=== PATIENT | male | born 1990 | race Caucasian/White ===

== ENCOUNTER 2017-07-25 13:00 | Emergency (ER) | payer OTHER ==
[2017-07-25 13:26] VITALS: BP 109/60
[2017-07-25] MEDS ORDERED: Lidocaine 2% W/EPI 1:100,000* 20 ML MDV INJ ONE (14:44)
[2017-07-25] MEDS ORDERED: Ibuprofen TAB* 200 MG PO ONE (15:07)
--- NOTE | 2017-07-25 15:12 | ED ---
Jelani Elizalde Nilda, scribed for Monica Story MD on 07/25/17 at 1452 . Adult Trauma - HPI Summary HPI Summary: This patient is a 26 year old M [place] [facility] [place] into a metal pole at 12:30 today (2 hours ago) while at work. 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 He sustained a laceration over his left eye. The patient rates the burning pain 4/10 in severity. Symptoms alleviated by compression. Patient denies LOC, bleeding from orifices (eyes, ears, nose, and mouth), dental trauma, abnormal neck pain, and abnormal back pain. He reports that his last tetanus shot was 4-5 years ago. Pt is not immunocompromised. No other injuries Patient's medication reviewed this visit. He states he is not taking nor is required to take any medications. - History of Current Complaint Chief Complaint: UCLaceration Stated Complaint: HIT HEAD ON POLE Time Seen by Provider: 07/25/17 14:39 Hx Obtained From: Patient Mechanism of Injury: Unknown - walked into metal pole Ambulatory at the Scene: Yes Loss of Consciousness: no loss of consciousness Onset/Duration: Started Hours Ago, Traumatic, Still Present Current Severity: Moderate Pain Intensity: 4 Pain Scale Used: 0-10 Numeric Location: Head Character: Burning Alleviating Factor(s): Compression Associated Signs & Symptoms: Positive: Other: - denies LOC, bleeding from orifices (eyes, ears, nose, and mouth), dental pain, abnormal neck pain, and abnormal back pain. - Allergy/Home Medications Allergies/Adverse Reactions: Allergies Allergy/AdvReac Type Severity Reaction Status Date / Time No Known Allergies Allergy Verified 07/25/17 13:26 Home Medications: Home Medications NK [No Home Medications Reported] 07/25/17 [History Confirmed 07/25/17] PMH/Surg Hx/FS Hx/Imm Hx Previously Healthy: Yes Endocrine/Hematology History: Denies: Hx Anticoagulant Therapy, Hx Diabetes, Hx Thyroid Disease Cardiovascular History: Denies: Hx Hypertension Respiratory History: Denies: Hx Asthma, Hx Chronic Obstructive Pulmonary Disease (COPD) GI History: Denies: Hx Ulcer - Surgical History Surgery Procedure, Year, and Place: ear surgery Infectious Disease History: No Infectious Disease History: Denies: Hx Clostridium Difficile, Hx Hepatitis, Hx Human Immunodeficiency Virus (HIV), Hx of Known/Suspected MRSA, Hx Shingles, Hx Tuberculosis, Hx Known/ Suspected VRE, Hx Known/Suspected VRSA, History Other Infectious Disease, Traveled Outside the [place] in Last 30 Days - Family History Known Family History: Negative: Hypertension, Diabetes - Social History Occupation: Employed Full-time - mailman Alcohol Use: Daily Substance Use Type: Reports: None Hx Tobacco Use: Yes Smoking Status (MU): Current Every Day Smoker Review of Systems Constitutional: Negative Eyes: Negative Positive: Other - negative bleeding from eyes Positive: Other - negative bleeding from nose, ears, and mouth. Negative: Dental Pain - negative dental trauma Positive: Other - negative abnormal neck pain and back pain Positive: Other - laceration over left eye Neurological: Other - negative LOC All Other Systems Reviewed And Are Negative: Yes Physical Exam Triage Information Reviewed: Yes Vital Signs On Initial Exam: Initial Vitals Temp Pulse Resp BP Pulse Ox 99.1 F 72 20 109/60 100 07/25/17 13:18 07/25/17 13:18 07/25/17 13:18 07/25/17 13:18 07/25/17 13:18 Vital Signs Reviewed: Yes Appearance: Positive: Well-Appearing, No Pain Distress, Well-Nourished Skin: Positive: Other - 1.5cm left lateral eyebrow Head/Face: Positive: Other - see skin Eyes: Positive: Normal ENT: Positive: Hearing grossly normal, Pharynx normal, Nasal congestion, TMs normal, Other - no pain or crepitus with palpation orbital ring b/l Neck: Positive: Supple, Nontender Respiratory/Lung Sounds: Positive: Clear to Auscultation, Breath Sounds Present Cardiovascular: Positive: Normal, RRR Musculoskeletal: Positive: Normal Neurological: Positive: Normal, Sensory/Motor Intact, Alert, Oriented to Person Place, Time Psychiatric: Positive: Normal AVPU Assessment: Alert - Maura Coma Scale Best Eye Response: 4 - Spontaneous Best Motor Response: 6 - Obeys Commands Best Verbal Response: 5 - Oriented Procedures - Procedure Summary Procedure Summary: time out conducted pt tolerated well reviewed wound care s/s infection with pt - Laceration/Wound Repair 1 Location: face - left lateral margin eye brow Description: Linear Anesthesia: 1.0%, Lido, Epi Length, Depth and Shape: 1.5 cm Betadine Prep?: No Laceration/Wound Explored: clean Closure: Single Layer Suture Type: Prolene - 6-0 Number of Sutures: 4 Layer Closure?: No - antibiotic ointment Sterile Dressing Applied?: No Diagnostics - Vital Signs Vital Signs Temp Pulse Resp BP Pulse Ox 07/25/17 13:18 99.1 F 72 20 109/60 100 - Laboratory Lab Statement: Any lab studies that have been ordered have been reviewed, and results considered in the medical decision making process. Adult Trauma Course/Dx - Course Assessment/Plan: This patient is a 26 year old M [place] [facility] [place] metal pole at 12:30 today (2 hours ago). He sustained a laceration over his left eye. Patient denies LOC, bleeding from orifices (eyes, ears, nose, and mouth), dental trauma, abnormal neck pain, and abnormal back pain. He reports that his last tetanus shot was 4-5 years ago. Patient's medication reviewed this visit. He states he is not taking nor is required to take any medications. We repaired the 1.5cm linear laceration with 4 sutures 6- 0 prolene, 1% Lido with Epi, single layer, antibiotic ointment. Pt is stable and will be D/C. - Diagnoses Provider Diagnoses: Facial laceration Discharge - Discharge Plan Condition: Stable Disposition: HOME Patient Education Materials: Facial Laceration (ED) Referrals: No Primary Care Phys,NOPCP [Primary Care Provider] - Additional Instructions: - your stitches should come out in 5 days - you can return here, go to your Doctor or any urgent care center - okay to alternate ibuprofin (advil, motrin) and tylenol every 3hours as needed for pain -Keep your wound clean and dry - no soaking for 24 hours. Then, okay for wound to get wet - pat dry, don't rub -apply a thin layer of antibiotic ointment (neosporin, polysporin) 2-3 times a day - when you have a cut, you will have a scar. To minimize scar formation - you will likely get some bruising in the area of your cut and it will spread to your eye - this is normal - keep your wound clean - monitor for signs of infection - reddness, red streaking, odor, green drainage -Once sutures out - keep your wound out of direct sun (wear a hat or sun screen ) - it may take up to 8 months for your scar to reach its final state - Contact your doctor or return here with questions or concerns The documentation as recorded by the Jelani sinha Nilda accurately reflects the service I personally performed and the decisions made by me, Monica Story MD.
== END 2017-07-25 15:20 | disposition home or self-care (01) ==
LOC: UCEAST 13:00
DX: Z72.0 Tobacco use (principal); S01.81XA Laceration without foreign body of other part of head, initial encounter; W22.02XA Walked into lamppost, initial encounter; Y93.01 Activity, walking, marching and hiking; Y92.89 Other specified places as the place of occurrence of the external cause; Y99.0 Civilian activity done for income or pay
CPT/HCPCS: 12011; 99202; A9270-GY; G0463

== ENCOUNTER 2018-01-01 07:48 | Emergency (ER) | payer OTHER ==
[2018-01-01 08:07] VITALS: BP 107/79
--- NOTE | 2018-01-01 08:15 | UC ---
Skin Complaint HPI - HPI Summary HPI Summary: Pt presents with c/o circular, itchy rash to bilateral lower extremities. Pt states that rash began as one ch[place]a on left lower extremity and now has increased in number and is spreading to right lower extremity. Pt began putting anti fungal lotion yesterday to rash with some improvement to c/o of being itchy. Denies previous tick bite - History of Current Complaint Chief Complaint: UCRash Stated Complaint: BILATERAL LEG COMPLAINT Hx Obtained From: Patient Onset/Duration: Sudden Onset, Worse Since - onset Skin Exposure Onset/Duration: Days Ago Timing: Constant Onset Severity: Moderate Current Severity: Moderate Pain Intensity: 0 Location: Diffuse - bilateral lower extremities Character: Pruritus, Redness Aggravating Factor(s): Nothing Alleviating Factor(s): OTC Creams/Salves Associated Signs & Symptoms: Positive: Rash - Allergy/Home Medications Allergies/Adverse Reactions: Allergies Allergy/AdvReac Type Severity Reaction Status Date / Time No Known Allergies Allergy Verified 01/01/18 08:07 Home Medications: Home Medications Clotrimazole [Lotrimin AF] 12 gm TP DAILY 01/01/18 [History Confirmed 01/01/18] Ibuprofen TAB* [Advil TAB*] 400 mg PO Q6H PRN 01/01/18 [History Confirmed ] Review of Systems Constitutional: Negative Skin: Rash Eyes: Negative ENT: Negative Respiratory: Negative Cardiovascular: Negative Gastrointestinal: Negative Genitourinary: Negative Motor: Negative Neurovascular: Negative Musculoskeletal: Negative Neurological: Negative Psychological: Negative Is Patient Immunocompromised?: No All Other Systems Reviewed And Are Negative: Yes PMH/Surg Hx/FS Hx/Imm Hx Previously Healthy: Yes Other History Of: Negative For: Anticoagulant Therapy - Surgical History Surgical History: Yes Surgery Procedure, Year, and Place: ear surgery - Family History Known Family History: Negative: Hypertension, Diabetes - Social History Occupation: Employed Full-time Lives: With Family Alcohol Use: Daily Alcohol Amount: 4 beers daily Substance Use Type: None Smoking Status (MU): Light Every Day Tobacco Smoker Type: Cigarettes Amount Used/How Often: 7 cigs daily Have You Smoked in the Last Year: Yes - Immunization History Most Recent Tetanus Shot: 3 years ago Physical Exam Triage Information Reviewed: Yes Appearance: Well-Appearing Vital Signs: Initial Vital Signs Temp 98.4 F 01/01/18 08:01 Pulse 65 01/01/18 08:01 Resp 18 01/01/18 08:01 BP 107/79 01/01/18 08:01 Pulse Ox 100 01/01/18 08:01 Vital Signs Reviewed: Yes Eye Exam: Normal ENT Exam: Normal Dental Exam: Normal Neck exam: Normal Respiratory Exam: Normal Respiratory: Positive: No respiratory distress Musculoskeletal Exam: Normal Neurological Exam: Normal Psychological Exam: Normal Skin: Positive: rashes - bilateral lower extremities, circular areas with 5 circular areas LLE and ~ 3 on RLE. erythematous are blanchable Course/Dx - Differential Diagnoses - Skin Complaint Differential Diagnoses: Tick Born Illness, Tinea - Diagnoses Provider Diagnoses: Ring worm Discharge - Sign-Out/Discharge Documenting (check all that apply): Discharge/Admit/Transfer - Discharge Plan Condition: Stable Disposition: HOME Prescriptions: Clotrimazole 1% TOPICAL (NF) [Lotrimin 1% TOPICAL (NF)] 1 % EX Q12H #1 tube Fluconazole 100 MG TAB* [Diflucan 100 MG TAB*] 100 mg PO DAILY #5 tab Patient Education Materials: Skin Yeast Infection (ED) Referrals: [facility] [place] [facility] REFERRAL [Outside] - If Needed No Primary Care Phys,NOPCP [Primary Care Provider] - Additional Instructions: Please follow up with your PCP or return to clinic as needed. - Billing Disposition and Condition Condition: STABLE Disposition: HOME
== END 2018-01-01 08:21 | disposition home or self-care (01) ==
LOC: UCCORT 07:48
DX: B35.4 Tinea corporis (principal); F17.210 Nicotine dependence, cigarettes, uncomplicated
CPT/HCPCS: 99212; G0463